=== PATIENT | male | born 1960 | race Caucasian/White ===

== ENCOUNTER → 2018-01-16 | Outpatient (REF) ==
[2018-01-16 09:43] LABS: THYROID STIMULATING HORMONE 1.81 uIU/mL (0.465-4.680)
[2018-01-16 10:56] LABS: PSA-TOTAL 0.67 ng/mL (0-4)
== END ==
LOC: ZLAB.WCH 08:31
PROVIDERS: Family Medicine
DX: Z01.89 Encounter for other specified special examinations (principal)
CPT/HCPCS: G0103

== ENCOUNTER 2022-03-22 11:06 | Observation (INO) | payer BC ==
[~2022-03-22] VITALS: Ht 175.3 cm; Wt 79.5 kg
[2022-03-22 12:10] LABS: HEMATOCRIT 42.9 % (42.0-52.0); HEMOGLOBIN 13.9 g/dl (13.5-18.0); MEAN CELL VOLUME 82 fl (80.0-100.0); MEAN CORPUSCULAR HEMOGLOBIN 27 pg (27-31); MEAN CORPUSCULAR HGB CONC 32 g/dl (33.0-37.0); MEAN PLATELET VOLUME 10.2 fl (7.4-10.4); PLATELET COUNT 358 K/mm3 (130-400); RED BLOOD COUNT 5.24 M/mm3 (4.20-5.60); REDCELL DISTRIBUTION WIDTH-CV 15.3 % (11.5-14.5)
[2022-03-22 12:24] LABS: ALANINE AMINOTRANSFERASE 25 U/L (0-55); ALKALINE PHOSPHATASE 69 U/L (40-150); ANION GAP 12 mmol/L (7-16); AST,SGOT 23 U/L (5-34); BILIRUBIN,TOTAL 0.4 mg/dL (0.2-1.2); BLOOD UREA NITROGEN 22 mg/dL (8-26); CALCIUM 9.2 mg/dL (8.4-10.2); CARBON DIOXIDE 23 mmol/L (23-31); CHLORIDE 105 mmol/L (98-107); CREATININE, serum 0.93 mg/dL (0.72-1.25); GLUCOSE 87 mg/dL (70-99); POTASSIUM 4.1 mmol/L (3.5-4.5); SODIUM 140 mmol/L (136-145); TOTAL PROTEIN 7.1 gm/dL (6.2-8.1)
[2022-03-22 12:35] LABS: TROPONIN-I < 0.010 ng/mL (0.00-0.033)
[2022-03-22 12:42] LABS: BAND 2 % (0-10); BASOPHIL 1 % (0-2); EOSINOPHIL 5 % (0-4); LYMPHOCYTE 18 % (20.0-51.0); NEUTROPHILS 62 % (42.0-75.2); PLATELET ESTIMATE NORMAL (NORMAL)
[2022-03-22 17:27] VITALS: BP 141/67; PULSE 45; TEMP 97.4
[2022-03-22] MEDS ORDERED: ZOCOR 40MG40 MG PO (18:40)
[2022-03-22] MEDS ORDERED: ZEBETA 5MG5 MG PO (18:41)
[2022-03-22] MEDS ORDERED: ACCURETIC 25 MG1 TAB PO (18:41)
[2022-03-22] MEDS ORDERED: SINGULAIR 110 MG/TAB PO (18:42)
[2022-03-22] MEDS ORDERED: MOBIC15 MG PO (18:42)
[2022-03-22] MEDS ORDERED: ASPIRIN E.C. 8181 MG PO (18:43)
--- NOTE | 2022-03-22 20:01 | NUR ---
PATIENT ARRIVED FROM ED, TRANSITIONED TO BED, ASSESSMENT PERFORMED, ORIENTED TO ROOM AND RESTING COMFORTABLY IN BED. SHIFT REPORT COMPLETED, ADMISSION COMPLETED.
[2022-03-22 20:09] VITALS: BP 144/65; PULSE 51; TEMP 97.8
[2022-03-22 23:59] VITALS: BP 126/70; PULSE 51; TEMP 97.8
[2022-03-23] VITALS (9 sets, daily range): BP systolic 101–129; BP diastolic 66–79; PULSE 48–76; TEMP 97.3–98.3
[2022-03-23 07:14] LABS: BASO # 0.1 K/mm3 (0.0-0.2); BASO % 0.6 % (0.0-2.0); EOS # 0.7 K/mm3 (0.0-0.7); EOS % 5.3 % (0.0-4.0); GRAN # 9.8 K/mm3 (1.4-6.5); GRAN % 70.3 % (42.2-75.2); HEMATOCRIT 44.1 % (42.0-52.0); LYMPH % 14.2 % (20.0-51.0); MEAN CELL VOLUME 84 fl (80.0-100.0); MEAN CORPUSCULAR HEMOGLOBIN 27 pg (27-31); MEAN CORPUSCULAR HGB CONC 32 g/dl (33.0-37.0); MEAN PLATELET VOLUME 10.1 fl (7.4-10.4); MONO # 1.3 K/mm3 (0.1-0.6); MONO % 9.1 % (1.7-9.3); PLATELET COUNT 336 K/mm3 (130-400); RED BLOOD COUNT 5.28 M/mm3 (4.20-5.60); REDCELL DISTRIBUTION WIDTH-CV 15.4 % (11.5-14.5)
[2022-03-23 07:29] LABS: CALCIUM 8.8 mg/dL (8.4-10.2); CREATININE, serum 0.8 mg/dL (0.72-1.25); POTASSIUM 4.1 mmol/L (3.5-4.5)
--- NOTE | 2022-03-23 07:36 | NUR ---
SLEPT WELL THIS SHIFT, NO C/O PAIN, UP AD DINO IN ROOM, NPO SINCE MIDNIGHT.
--- NOTE | 2022-03-23 10:13 | NUR ---
Initial visit; Patient out of room, Manager Case spoke with his ; Silvia and wished Jh well. Silvia thanked Manager Case for looking in on them and keeping Jh in her prayers.
== END 2022-03-23 17:30 | disposition home or self-care (01) ==
LOC: COL.ER 11:06 → MEDICAL 13:54
PROVIDERS: Personal Emergency Response Attendant; ADMIT Student in an Organized Health Care Education/Training Program
DX: R07.9 Chest pain, unspecified (principal); I25.10 Atherosclerotic heart disease of native coronary artery without angina pectoris; I10 Essential (primary) hypertension; Z20.822 Contact with and (suspected) exposure to COVID-19; R00.1 Bradycardia, unspecified; E78.5 Hyperlipidemia, unspecified; I34.0 Nonrheumatic mitral (valve) insufficiency; E04.2 Nontoxic multinodular goiter; Z79.82 Long term (current) use of aspirin; Z95.5 Presence of coronary angioplasty implant and graft; Z79.899 Other long term (current) drug therapy
CPT/HCPCS: A9500; G0378; J2785; Q9967